=== PATIENT | female | born 1975 | race Caucasian/White ===

== ENCOUNTER 2017-09-06 14:57 | Emergency (ER) | payer BC ==
[2017-09-06 15:46] LABS: Protime INR 1.5
[2017-09-06 15:48] LABS: Absolute Lymphocytes (CBC) 2.5 K/uL (0.7-4.9); Absolute Monocytes 1.7 K/uL (0.1-1.3); Absolute Neutrophil 13.5 K/uL (1.8-8.0); Basophils % 0.5 % (0-1.3); Eosinophils % 0.3 % (0-4.4); Hematocrit 36.8 % (36.0-45.0); Lymphocytes % 14.1 % (15.3-44.8); MCH 28.1 pg (27.0-35.0); MCV 85.9 fL (80-100); MPV 8.3 fL (7.6-11.3); Monocytes % 9.4 % (3.3-12.3); RBC Red Blood Cell Count 4.29 M/uL (3.86-4.86)
[2017-09-06 15:55] LABS: ALT/SGPT 45 U/L (12-78); AST/SGOT 63 U/L (15-37); Alkaline Phosphatase 504 U/L (45-117); BUN Blood Urea Nitrogen 6 mg/dL (7-18); Bicarbonate 29 mmol/L (21-32); Bilirubin Direct 0.2 mg/dL (0-0.2); Bilirubin Total 0.4 mg/dL (0.2-1.0); Creatine Phosphokinase 18 U/L (26-192); Glucose Level 94 mg/dL (74-106); Lipase 20 U/L (73-393); Potassium 3.8 mmol/L (3.5-5.1); Protein, Total 7.6 g/dL (6.4-8.2); Sodium Level 129 mmol/L (136-145)
[2017-09-06] MEDS ORDERED: IPRATROPIUM BROM 0.5MG/2.5ML ONE (15:58)
[2017-09-06] MEDS ORDERED: ALBUTEROL 2.5 MG/3 ML NEB SOL ONE (15:58)
[2017-09-06] MEDS ORDERED: NA CHLORIDE 0.9% 2,000 ML ONE (15:58)
[2017-09-06] MEDS ORDERED: Levofloxacin 750mg IV 750 MG/150 ML BAG IV ONE (15:58)
[2017-09-06 16:09] LABS: Urine Blood TRACE (NEG); Urine Glucose NEGATIVE (NEG); Urine Protein NEGATIVE (NEG); Urine Specific Gravity <1.005 (1.005-1.030); Urine pH 6.5 (5.0-7.0)
[2017-09-06] MEDS ORDERED: FENTANYL CITR 100 MCG/2 ML ONE ×2 (17:04→20:49)
[2017-09-06] MEDS ORDERED: ONDANSETRON 4 MG/2 ML VIAL ONE (17:04)
--- NOTE | 2017-09-06 17:12 | RAD REPORT ---
EXAM DESCRIPTION: RAD - Chest Single View - 09/06/2017 4:05 pm CLINICAL HISTORY: DYSPNEA Chest pain. COMPARISON: No comparisons FINDINGS: Portable technique limits examination quality. A large left pleural effusion is noted. The right lung grossly clear. The heart is normal in size. No displaced fractures. IMPRESSION: Large left pleural effusion.
--- NOTE | 2017-09-06 18:07 | RAD REPORT ---
EXAM DESCRIPTION: CT - Chest For Pe Angio - 09/06/2017 5:33 pm CLINICAL HISTORY: Chest pain. DYSPNEA COMPARISON: Abdomen Pelvis W Contrast dated 10/19/2015 TECHNIQUE: CT angiogram of the pulmonary arteries was performed with MIP. All CT scans are performed using dose optimization technique as appropriate and may include automated exposure control or mA/KV adjustment according to patient size. FINDINGS: No evidence of pulmonary thromboembolism. No acute aortic finding demonstrated. A large loculated left pleural effusion is seen with significant left lung compressive atelectasis no roxana. Mild cardiomediastinal shift to the right is seen. The right lung appears clear. No pericardial or right pleural effusion. Mildly prominent mediastinal and left hilar adenopathy is seen. No concerning bony finding. The partially visualized defect is present in the spleen laterally suggesting a splenic laceration or infarct. This is incompletely imaged. Vague filling defect is seen in the splenic artery. IMPRESSION: No evidence of pulmonary thromboembolism. Large loculated left pleural effusion is seen with mild [id number] midline shift. Partially imaged hypodensity in the inferolateral spleen with vague partially imaged filling defect i n distal splenic artery. Splenic infarct vs laceration/rupture suspected. Findings were discussed with Domenic Box in the ER 6 p.m. 09/06/2017 by telephone.
--- NOTE | 2017-09-06 18:38 | RAD REPORT ---
EXAM DESCRIPTION: CT - Abdomen Pelvis Wo Contrast - 09/06/2017 6:28 pm CLINICAL HISTORY: Abdominal pain. ABD PAIN COMPARISON: Abdomen Pelvis W Contrast dated 10/19/2015; Chest For Pe Angio dated 09/06/2017 TECHNIQUE: CT imaging of the abdomen and pelvis was performed without contrast. Solid organ, bowel a nd vascular assessment is limited due to lack of IV and oral contrast. All CT scans are performed using dose optimization technique as appropriate and may include automated exposure control or mA/KV adjustment according to patient size. FINDINGS: Again noted is a large loculated left pleural effusion fully detailed on dedicated CT ches t performed earlier. Ill-defined hypodensity is again noted in the lateral aspect of the spleen the surrounding crescentic fluid collection measuring 13 mm in thickness. This is likely related to splenic rupture laterally w ith surrounding contained hematoma. Pancreatic ductal dilatation is noted with multiple calcifications compatible with chronic pancreatit is. No acute liver, adrenal gland or kidney finding. The appendix is normal. No bowel obstruction or free air. IMPRESSION: Hypodensity in the lateral aspect of the spleen with surrounding 13-14 mm thick crescent ic low-density fluid collection is suspicious for contained splenic rupture. Findings were discussed with Domenic Box in the ER at 6:35 p.m. 09/06/2017 by telephone A limited non-contrast examination was performed as detailed.
[2017-09-06] MEDS ORDERED: CEFTRIAXONE/SWI 1gm 1 GM/10 ML SYR ONE (19:09)
--- NOTE | 2017-09-06 19:50 | ER ---
Nurse's Notes [facility] Name: Jes Dean Age: 42 yrs Sex: Female : 1975 Arrival Date: 09/06/2017 Time: 14:58 Bed 24 Private MD: Diagnosis: Sepsis;Pneumonia due to other specified bacteria;Pleural effusion in conditions classified elsewhere;Encapsulated Splenic Rupture Presentation: 09/06 15:00 Note patient to restroom, per her request. lk1 15:08 Presenting complaint: Patient states: "I have had chest pains and pneumonia pains for lk1 two weeks now. I have just been too sick to come here.". Transition of care: patient was not received from another setting of care. Onset of symptoms was August 21, 2017. Risk Assessment: Do you want to hurt yourself or someone else? Patient reports no desire to harm self or others. Initial Sepsis Screen: Does the patient meet any 2 criteria? RR > 20 per min. HR > 90 bpm. Yes Does the patient have a suspected source of infection? Yes: Productive cough/pneumonia. Care prior to arrival: None. 15:08 Method Of Arrival: Wheelchair lk1 15:08 Acuity: JENNIFER 2 lk1 Triage Assessment: 15:05 General: Appears in no apparent distress. uncomfortable, unkempt, well developed, kr2 Behavior is cooperative, anxious. Respiratory: Onset: The symptoms/episode began/occurred gradually, the patient has mild shortness of breath. Historical: - Allergies: 15:11 No Known Allergies; lk1 - PMHx: 15:11 Pancreatitis; Diabetes - IDDM; Hypertension; lk1 - PSHx: 15:11 Cholecystectomy; lk1 - Immunization history:: Adult Immunizations up to date. - Social history:: Smoking status: Patient uses tobacco products, smokes one-half pack cigarettes per day. - Ebola Screening: : No symptoms or risks identified at this time. Screenin:05 Abuse screen: Denies threats or abuse. Denies injuries from another. Nutritional kr2 screening: No deficits noted. Tuberculosis screening: No symptoms or risk factors identified. Fall Risk IV access (20 points). Assessment: 15:05 Pain: Complains of pain in diaphragm Pain radiates to back Pain currently is 8 out of kr2 10 on a pain scale. Quality of pain is described as sharp, shooting, Is continuous, Alleviated by rest, Aggravated by increased activity. Neuro: Level of Consciousness is awake, alert, obeys commands, Oriented to person, place, time, situation, Appropriate for age. Cardiovascular: Rhythm is sinus tachycardia. Respiratory: Airway is patent Respiratory effort is even, unlabored, Respiratory pattern is regular, symmetrical, Breath sounds are diminished in left posterior lower lobe. Respiratory: Reports shortness of breath at rest cough that is non-productive. GI: Abdomen is flat, non-distended, Abd is soft and non tender X 4 quads. : Urine is clear. EENT: Oral mucosa is dry. Derm: Skin is intact, with poor turgor Skin is dry, Skin is pale, pink, Skin temperature is warm. Musculoskeletal: Circulation, motion, and sensation intact. Range of motion: intact in all extremities. 16:00 Reassessment: Patient appears in no apparent distress at this time. Patient and/or kr2 family updated on plan of care and expected duration. Pain level reassessed. Patient is alert, oriented x 3, equal unlabored respirations, skin warm/dry/pink. Patient states feeling better. 17:00 Reassessment: Patient appears in no apparent distress at this time. Patient and/or kr2 family updated on plan of care and expected duration. Pain level reassessed. Patient is alert, oriented x 3, equal unlabored respirations, skin warm/dry/pink. Patient states feeling better. 18:00 Reassessment: Patient appears in no apparent distress at this time. No changes from kr2 previously documented assessment. Patient and/or family updated on plan of care and expected duration. Pain level reassessed. Patient is alert, oriented x 3, equal unlabored respirations, skin warm/dry/pink. 18:45 Reassessment: Patient appears in no apparent distress at this time. Patient and/or kr2 family updated on plan of care and expected duration. Pain level reassessed. Patient is alert, oriented x 3, equal unlabored respirations, skin warm/dry/pink. Patient complains of pain, QUINTIN Altamirano notified, orders given, see MAR. 20:02 Reassessment: Patient appears in no apparent distress at this time. Patient and/or kr2 family updated on plan of care and expected duration. Pain level reassessed. Patient is alert, oriented x 3, equal unlabored respirations, skin warm/dry/pink. Patient states feeling better. Patient states symptoms have improved. 20:25 Reassessment: Report called to receiving nurse RUKHSANA Mcdowell at [facility]. kr2 20:50 Reassessment: Patient appears in no apparent distress at this time. Patient and/or kr2 family updated on plan of care and expected duration. Pain level reassessed. Patient is alert, oriented x 3, equal unlabored respirations, skin warm/dry/pink. Patient states she is starting to have pain again. Provider notified, orders received, patient medicated as ordered. See MAY. 21:07 Reassessment: EMS here for transport, given report. kr2 Vital Signs: 15:11 BP 109 / 74; Pulse 126; Resp 28; Temp 99.6(O); Pulse Ox 96% on R/A; Weight 55.34 kg lk1 (R); Height 5 ft. 9 in. (175.26 cm) (R); Pain 8/10; 16:30 BP 102 / 72; Pulse 110; Resp 20; Temp 98.4; Pulse Ox 98% on 2 lpm NC; kr2 17:51 BP 99 / 72; Pulse 116; Resp 20; Pulse Ox 95% 2 lpm ; kr2 18:30 BP 109 / 66; Pulse 110; Resp 21; Pulse Ox 97% on 2 lpm NC; kr2 19:17 BP 100 / 64; Pulse 97; Resp 17; Pulse Ox 98% on 2 lpm NC; kr2 20:02 BP 113 / 83; Pulse 93; Resp 19; Pulse Ox 97% on 2 lpm NC; kr2 15:11 Body Mass Index 18.02 (55.34 kg, 175.26 cm) lk1 ED Course: 14:58 Patient arrived in ED. sb2 15:05 Patient has correct armband on for positive identification. Bed in low position. Call kr2 light in reach. Side rails up X 1. lunchroom monitor on. Pulse ox on. NIBP on. Door closed. Verbal reassurance given. Head of bed elevated. 15:05 Oxygen administration via nasal cannula \\T\\ 2L/min. kr2 15:10 Triage completed. lk1 15:11 [facility] jr8 15:11 Mynor Sanchez MD is Attending Physician. jr8 15:12 Arm band placed on right wrist. lk1 15:13 Kyra Arciniega, RN is Primary Nurse. kr2 15:30 Inserted saline lock: 22 gauge in right forearm, using aseptic technique. kr2 16:05 X-ray completed. Portable x-ray completed in exam room. Patient tolerated procedure la2 poorly. 16:05 Chest Single View XRAY In Process Unspecified. EDMS 16:10 EKG done, by ED staff, reviewed by Domenic RIBEIRO. tt1 16:47 Radiology exam delayed due to test not completed at this time. bq 17:32 CT completed. Patient moved to CT via wheelchair. Patient moved back from CT. sj 17:33 CT Chest For PE Angio In Process Unspecified. EDMS 18:27 CT Abd/Pelvis - Without Cont In Process Unspecified. EDMS 18:56 initiated transfer with [employer] design transferrer with [facility]. em1 19:36 connected the general surgeon and solutions executive security from [facility] with Domenic RIBEIRO for patient eb transfer consulation. 20:00 Administrative approval given by Melida Sr from [facility]. Pt to go to [address] [place] [address] 5 Bed 18. Report to be called to [phone]. The accepting physician will be the general surgeon Dr. Joseph Yepez. 21:10 No provider procedures requiring assistance completed. Patient transferred, IV remains kr2 in place. Administered Medications: 15:35 Drug: NS 0.9% (30 ml/kg) 30 ml/kg Route: IV; Rate: bolus; Site: right forearm; kr2 18:45 Follow up: Response: No adverse reaction; IV Status: Completed infusion kr2 16:02 Drug: Albuterol - atroVENT (3:1) (2.5 mg - 0.5 mg) 3 ml Route: Nebulizer; kr2 16:30 Follow up: Response: No adverse reaction; Marked relief of symptoms kr2 16:02 Drug: LevaQUIN 750 mg Volume: 150 ml; Route: IVPB; Infused Over: 90 mins; Site: right kr2 forearm; 17:45 Follow up: Response: No adverse reaction; IV Status: Completed infusion kr2 17:05 Drug: fentaNYL (PF) 50 mcg Route: IVP; Site: right forearm; kr2 17:50 Follow up: Response: No adverse reaction; Pain is decreased kr2 17:05 Drug: Zofran 4 mg Route: IVP; Site: right forearm; kr2 17:50 Follow up: Response: No adverse reaction kr2 18:50 Drug: fentaNYL (PF) 50 mcg Route: IVP; Site: right forearm; kr2 19:15 Follow up: Response: No adverse reaction; Pain is decreased kr2 19:15 Drug: Rocephin 1 grams Route: IV; Rate: calculated rate; Site: right forearm; kr2 19:20 Follow up: Response: No adverse reaction; IV Status: Completed infusion kr2 20:55 Drug: fentaNYL (PF) 25 mcg Route: IVP; Site: right forearm; kr2 21:12 Follow up: Response: No adverse reaction; Pain is decreased kr2 Point of Care Testing: Blood Glucose: 16:30 Blood Glucose: 81 mg/dL; kr2 Ranges: Outcome: 19:49 ER care complete, transfer ordered by jr8 21:10 Transferred by ground EMS to [facility], Transfer form completed. kr2 21:10 Condition: stable 21:10 Instructed on the need for transfer, Demonstrated understanding of instructions. 21:14 Patient left the ED. kr2 Signatures: Dispatcher [employer] EDMS Amy Patton Betty bq Martinez, Eric em1 Domenic Box PA PA jr8 Christa Taylor tt1 Sheila Colvin RN RN lk1 Carolina Sullivan la2 Kyra Arciniega RN RN kr2 Malaika Cordero2 Casi Laguna Corrections: (The following items were deleted from the chart) 16:09 16:02 LevaQUIN 750 mg 150 ml IVPB in right antecubital over 90 mins 150 ml kr2 kr2
--- NOTE | 2017-09-06 19:50 | EDPHYS ---
Physician Documentation [facility] Name: Jes Dean Age: 42 yrs Sex: Female : 1975 Arrival Date: 09/06/2017 Time: 14:58 Bed 24 Private MD: ED Physician Mynor Sanchez HPI: 09/06 15:25 This 42 yrs old Female presents to ER via Wheelchair with complaints of jr8 Shortness Of Breath, Chest Pain. 15:25 The patient has shortness of breath at rest. Onset: The symptoms/episode began/occurred jr8 gradually, 1 week(s) ago. Duration: The symptoms are continuous. The patient's shortness of breath is aggravated by coughing, walking. Associated signs and symptoms: Pertinent positives: chest pain, fever. Severity of symptoms: At their worst the symptoms were moderate in the emergency department the symptoms are unchanged. The patient has not experienced similar symptoms in the past. The patient has not recently seen a physician. Historical: - Allergies: 15:11 No Known Allergies; lk1 - PMHx: 15:11 Pancreatitis; Diabetes - IDDM; Hypertension; lk1 - PSHx: 15:11 Cholecystectomy; lk1 - Immunization history:: Adult Immunizations up to date. - Social history:: Smoking status: Patient uses tobacco products, smokes one-half pack cigarettes per day. - Ebola Screening: : No symptoms or risks identified at this time. ROS: 15:25 Eyes: Negative for injury, pain, redness, and discharge, ENT: Negative for injury, jr8 pain, and discharge, Neck: Negative for injury, pain, and swelling, Back: Negative for injury and pain, MS/Extremity: Negative for injury and deformity, Skin: Negative for injury, rash, and discoloration, Neuro: Negative for headache, weakness, numbness, tingling, and seizure. 15:25 Cardiovascular: Positive for chest pain, Negative for edema, orthopnea, palpitations, paroxysmal nocturnal dyspnea. 15:25 Respiratory: Positive for cough, dyspnea on exertion, shortness of breath, wheezing. 15:25 Abdomen/GI: Positive for abdominal pain, Negative for nausea, vomiting, and diarrhea, abdominal cramps, abdominal distension, anorexia, dysphagia, hematemesis, black/tarry stool, rectal pain, rectal bleeding, bowel incontinence, flatulence. Exam: 15:25 Eyes: Pupils equal round and reactive to light, extra-ocular motions intact. Lids and jr8 lashes normal. Conjunctiva and sclera are non-icteric and not injected. Cornea within normal limits. Periorbital areas with no swelling, redness, or edema. ENT: Nares patent. No nasal discharge, no septal abnormalities noted. Tympanic membranes are normal and external auditory canals are clear. Oropharynx with no redness, swelling, or masses, exudates, or evidence of obstruction, uvula midline. Mucous membranes moist. Neck: Trachea midline, no thyromegaly or masses palpated, and no cervical lymphadenopathy. Supple, full range of motion without nuchal rigidity, or vertebral point tenderness. No Meningismus. Cardiovascular: Regular rate and rhythm with a normal S1 and S2. No gallops, murmurs, or rubs. Normal PMI, no JVD. No pulse deficits. Abdomen/GI: Soft, non-tender, with normal bowel sounds. No distension or tympany. No guarding or rebound. No evidence of tenderness throughout. Back: No spinal tenderness. No costovertebral tenderness. Full range of motion. Skin: Warm, dry with normal turgor. Normal color with no rashes, no lesions, and no evidence of cellulitis. MS/ Extremity: Pulses equal, no cyanosis. Neurovascular intact. Full, normal range of motion. Neuro: Awake and alert, GCS 15, oriented to person, place, time, and situation. Cranial nerves II-XII grossly intact. Motor strength 5/5 in all extremities. Sensory grossly intact. Cerebellar exam normal. Normal gait. 15:25 Respiratory: the patient does not display signs of respiratory distress, Respirations: tachypnea, that is mild, Breath sounds: decreased breath sounds, that are moderate, are heard in the left posterior lower lobe, wheezing: expiratory that is mild, is heard diffusely. 16:38 ECG was reviewed by the Attending Physician. [facility] Vital Signs: 15:11 BP 109 / 74; Pulse 126; Resp 28; Temp 99.6(O); Pulse Ox 96% on R/A; Weight 55.34 kg lk1 (R); Height 5 ft. 9 in. (175.26 cm) (R); Pain 8/10; 16:30 BP 102 / 72; Pulse 110; Resp 20; Temp 98.4; Pulse Ox 98% on 2 lpm NC; kr2 17:51 BP 99 / 72; Pulse 116; Resp 20; Pulse Ox 95% 2 lpm ; kr2 18:30 BP 109 / 66; Pulse 110; Resp 21; Pulse Ox 97% on 2 lpm NC; kr2 19:17 BP 100 / 64; Pulse 97; Resp 17; Pulse Ox 98% on 2 lpm NC; kr2 20:02 BP 113 / 83; Pulse 93; Resp 19; Pulse Ox 97% on 2 lpm NC; kr2 15:11 Body Mass Index 18.02 (55.34 kg, 175.26 cm) lk1 MDM: 15:13 Patient medically screened. 8 18:44 Data reviewed: vital signs, nurses notes, lab test result(s), EKG, radiologic studies, [facility] CT scan, plain films, and as a result, I will admit patient. Data interpreted: Pulse oximetry: on room air is 95 %. Interpretation: normal. Counseling: I had a detailed discussion with the patient and/or guardian regarding: the historical points, exam findings, and any diagnostic results supporting the discharge/admit diagnosis, lab results, radiology results, the need to transfer to another facility, for higher level of care, [facility] does not immediately have the required specialist. 18:44 ED course: Initiating transfer process to [facility] . [facility] 19:47 ED course: [facility] Accepted patient . 09/06 15:20 Order name: Basic Metabolic Panel; Complete Time: 15:56 09/06 15:20 Order name: Blood Culture Adult (2) 09/06 15:20 Order name: CBC with Diff; Complete Time: 15:56 09/06 15:20 Order name: CPK; Complete Time: 15:56 09/06 15:20 Order name: Lactate; Complete Time: 16:30 09/06 15:20 Order name: LFT's; Complete Time: 15:56 09/06 15:20 Order name: Lipase; Complete Time: 15:56 09/06 15:20 Order name: Procalcitonin; Complete Time: 16:14 09/06 15:20 Order name: Protime (+inr); Complete Time: 15:56 09/06 15:20 Order name: Troponin (emerg Dept Use Only); Complete Time: 15:56 09/06 15:20 Order name: Chest Single View XRAY; Complete Time: 17:23 09/06 15:36 Order name: Urine Dipstick--Ancillary (enter results); Complete Time: 16:14 09/06 16:09 Order name: CT Chest For PE Angio; Complete Time: 18:10 09/06 16:19 Order name: Test, Serum; Complete Time: 17:23 09/06 15:20 Order name: Accucheck; Complete Time: 16:48 09/06 15:20 Order name: Cardiac monitoring; Complete Time: 16:15 09/06 15:20 Order name: EKG - Nurse/Tech; Complete Time: 16:15 09/06 15:20 Order name: IV Saline Lock - Large Bore; Complete Time: 16:15 09/06 15:20 Order name: Labs collected and sent; Complete Time: 16:16 09/06 15:20 Order name: O2 Per Protocol; Complete Time: 16:16 09/06 15:20 Order name: O2 Sat Monitoring; Complete Time: 16:16 09/06 18:11 Order name: CT Abd/Pelvis - Without Cont; Complete Time: 18:43 09/06 15:20 Order name: Urine Dipstick-Ancillary (obtain specimen); Complete Time: 15:34 jr8 EC:38 Rate is 110 beats/min. Rhythm is regular, Sinus tachycardia. QRS S [place] is Normal. [place] jr8 interval is normal at 116 msec. QRS interval is normal at 76 msec. QT interval is normal at 435 msec. No Q waves. T waves are Flattened in lead III. No ST changes noted. Clinical impression: Sinus tachycardia. Interpreted by me. Reviewed by me. Administered Medications: 15:35 Drug: NS 0.9% (30 ml/kg) 30 ml/kg Route: IV; Rate: bolus; Site: right forearm; kr2 18:45 Follow up: Response: No adverse reaction; IV Status: Completed infusion kr2 16:02 Drug: Albuterol - atroVENT (3:1) (2.5 mg - 0.5 mg) 3 ml Route: Nebulizer; kr2 16:30 Follow up: Response: No adverse reaction; Marked relief of symptoms kr2 16:02 Drug: LevaQUIN 750 mg Volume: 150 ml; Route: IVPB; Infused Over: 90 mins; Site: right kr2 forearm; 17:45 Follow up: Response: No adverse reaction; IV Status: Completed infusion kr2 17:05 Drug: fentaNYL (PF) 50 mcg Route: IVP; Site: right forearm; kr2 17:50 Follow up: Response: No adverse reaction; Pain is decreased kr2 17:05 Drug: Zofran 4 mg Route: IVP; Site: right forearm; kr2 17:50 Follow up: Response: No adverse reaction kr2 18:50 Drug: fentaNYL (PF) 50 mcg Route: IVP; Site: right forearm; kr2 19:15 Follow up: Response: No adverse reaction; Pain is decreased kr2 19:15 Drug: Rocephin 1 grams Route: IV; Rate: calculated rate; Site: right forearm; kr2 19:20 Follow up: Response: No adverse reaction; IV Status: Completed infusion kr2 20:55 Drug: fentaNYL (PF) 25 mcg Route: IVP; Site: right forearm; kr2 21:12 Follow up: Response: No adverse reaction; Pain is decreased kr2 Point of Care Testing: Blood Glucose: 16:30 Blood Glucose: 81 mg/dL; kr2 Ranges: Critical Glucose Levels:Adult <50 mg/dl or >400 mg/dl <40 mg/dl or >180 mg/dl Disposition: 09/07 10:11 Co-signature as Attending Physician, Mynor Sanchez MD. Disposition: 09/06/17 19:49 Transfer ordered to [facility]. Diagnosis are Sepsis, Pneumonia due to other specified bacteria, Pleural effusion in conditions classified elsewhere, Encapsulated Splenic Rupture. - Reason for transfer: Higher level of care. - Accepting physician is [facility]. - Condition is Stable. - Problem is new. - Symptoms have improved. Signatures: Dispatcher [employer] EDMS Domenic Box PA PA jr8 Sheila Colvin RN RN lk1 Mynor Sanchez MD MD gs Reaves, Karey, RN RN kr2 Corrections: (The following items were deleted from the chart) 09/06 21:14 19:49 09/06/2017 19:49 Transfer ordered to [facility]. Diagnosis is kr2 Sepsis; Pneumonia due to other specified bacteria; Pleural effusion in conditions classified elsewhere; Encapsulated Splenic Rupture. Reason for transfer: Higher level of care. Accepting physician is [facility]. Condition is Stable. Problem is new. Symptoms have improved. jr8
--- NOTE | 2017-09-07 09:00 | EKG ---
Test Date: 2017-09-06 Test Time: 16:09:44 Apartment Rental Agent: TT MEASUREMENT RESULTS: Intervals: Rate: 110 NC: 116 QRSD: 76 QT: 322 QTc: 435 [place]: P: 10 NC: 116 QRS: 34 T: 40 INTERPRETIVE STATEMENTS: Sinus tachycardia Voltage criteria for left ventricular hypertrophy Abnormal ECG Compared to ECG 10/19/2015 17:49:17 Left ventricular hypertrophy now present Sinus rhythm no longer present Electronically Signed On 09-07-17 09:00:33 CDT by Yogi Conti
== END 2017-09-06 21:14 | disposition short-term general hospital (02) ==
LOC: ER 14:57
DX: A41.9 Sepsis, unspecified organism (principal); J15.8 Pneumonia due to other specified bacteria; J91.8 Pleural effusion in other conditions classified elsewhere; S36.09XA Other injury of spleen, initial encounter; I10 Essential (primary) hypertension; F17.210 Nicotine dependence, cigarettes, uncomplicated
CPT/HCPCS: 36415; 71045; 71275; 74176; 80048; 80076; 81003; 82550; 82962; 83605; 83690; 84145; 84484; 84703; 85025; 85610; 87040; 93005; 94640; 96361; 96365; 96366; 96375; 99285; J0696; J2405; J3010; J7030; Q9967